=== PATIENT | male | born 1945 | race Caucasian/White ===

== ENCOUNTER 2017-03-15 06:36 | Day surgery (SDC) | payer MEDICARE, BC ==
[2017-03-15] MEDS ORDERED: Lactated Ringers 1,000 ML IV SCH (07:00)
[2017-03-15] MEDS ORDERED: Propofol 200 MG/20 ML SDV ONE (07:29)
[2017-03-15] MEDS ORDERED: Midazolam 1 MG/ML 2 ML SDV ONE (07:30)
[2017-03-15] MEDS ORDERED: fentaNYL 100 MCG/2 ML SDV ONE (07:30)
[2017-03-15] MEDS ORDERED: Glycopyrrolate 0.2 MG/ML 2 ML SDV ONE (07:50)
[2017-03-15 09:24] VITALS: BP 123/77
--- NOTE | 2017-03-16 08:29 | OR ---
DATE OF PROCEDURE: 03/15/2017 PREOPERATIVE DIAGNOSIS: History of colon polyps. POSTOPERATIVE DIAGNOSES: Diverticulosis, history of colon polyps. SURGEON: Yadiel Rodriguez MD. PROCEDURE: Colonoscopy to the cecum. ANESTHESIA: IV anesthesia with monitored anesthesia care. INDICATION: This 71-year-old white male is referred for a colonoscopy because of a history of colon polyps. He thinks his last colonoscopic exam was done five years ago. I counseled him for the procedure including the risks and alternatives, and he gave his informed consent to proceed. DESCRIPTION OF PROCEDURE: The patient was placed in the left lateral decubitus position. IV anesthesia was administered by the Anesthesia Service. Time-out was held. A rectal exam was performed, which was unremarkable. The flexible video Olympus colonoscope wascintroduced through his anus, up his rectum, and out his colon all the way to the cecum. En route, we saw very few scattered left-sided diverticula. There was no bleeding or inflammation associated with them. Once the cecum was reached, the scope was slowly withdrawn, examining the mucosa throughout. No mucosal abnormalities, other than already mentioned, were noted. The scope was retroflexed in the rectum with the distal rectum appearing unremarkable. The scope was straightened and removed. He tolerated the procedure well. Yadiel Rodriguez MD /[id number] MTDD
== END 2017-03-15 09:20 | disposition home or self-care (01) ==
LOC: JP.SDS 06:36
PROVIDERS: ATTEND Surgery
DX: Z12.11 Encounter for screening for malignant neoplasm of colon (principal); Z86.010 Personal history of colon polyps; K57.30 Diverticulosis of large intestine without perforation or abscess without bleeding
CPT/HCPCS: G0105; J2250; J2704; J3010; J7120; J3490

== ENCOUNTER 2019-02-10 13:18 | Emergency (ER) | payer BC, MEDICARE ==
[2019-02-10 14:03] VITALS: BP 113/66; PULSE 102
[2019-02-10] MEDS ORDERED: Acetaminophen 500 MG Tab PO ONE (14:10)
--- NOTE | 2019-02-10 14:10 | EDM.PDOC ---
ED HPI GENERAL MEDICAL PROBLEM - General Chief Complaint: Bite:Animal, Insect Stated Complaint: TICK BITE Time Seen by Provider: 02/10/19 14:04 - History of Present Illness INITIAL COMMENTS - FREE TEXT/NARRATIVE: Tick bite to the left upper leg, about "two weeks ago" He is here with Has fever. Denies any worsening of joints; "always have achy joints". Is eating and drinking No chest pain or pressure, no sob Onset: Gradual Improves with: Reports: None Worsens with: Reports: None Associated Symptoms: Reports: Malaise - Related Data Allergies Allergy/AdvReac Type Severity Reaction Status Date / Time No Known Allergies Allergy Verified 03/15/17 06:58 Home Meds: Home Meds Aspirin [Adult Low Dose Aspirin EC] 81 mg PO DAILY 01/27/16 [History] Multivitamin with Minerals [Multiple Vitamin] 1 tab PO DAILY 01/27/16 [History] Tamsulosin [Tamsulosin 24 Hr] 0.4 mg PO DAILY 01/27/16 [History] Doxycycline [Vibramycin] 100 mg PO BID #28 cap 02/10/19 [Rx] Past Medical History HEENT History: Reports: Allergic Rhinitis, Impaired Vision Other HEENT History: wears glasses Cardiovascular History: Reports: Heart Murmur Gastrointestinal History: Reports: Colon Polyp Genitourinary History: Reports: Prostate Disorder Musculoskeletal History: Reports: Osteoarthritis Psychiatric History: Reports: Anxiety Dermatologic History: Reports: None - Infectious Disease History Infectious Disease History: Reports: Chicken Pox, Measles, Mumps, Shingles - Past Surgical History HEENT Surgical History: Reports: None Cardiovascular Surgical History: Reports: None GI Surgical History: Reports: Colonoscopy, Hernia, Inguinal Male Surgical History: Reports: None Musculoskeletal Surgical History: Reports: None Dermatological Surgical History: Reports: Skin Biopsy Social & Family History - Caffeine Use Caffeine Use: Reports: Coffee ED ROS GENERAL - Review of Systems Review Of Systems: See Below Constitutional: Reports: Weakness, Fatigue HEENT: Reports: No Symptoms Respiratory: Reports: No Symptoms Cardiovascular: Reports: No Symptoms GI/Abdominal: Reports: Other (loose stool) : Reports: No Symptoms Musculoskeletal: Reports: Muscle Stiffness (chronic) Skin: Reports: No Symptoms Psychiatric: Reports: No Symptoms ED EXAM, ANIMAL BITE - Physical Exam Exam: See Below Exam Limited By: No Limitations General Appearance: Alert, WD/WN, No Apparent Distress Throat/Mouth: Normal Inspection, Normal Oropharynx Head: Atraumatic, Normocephalic Neck: Normal Inspection, Supple, Non-Tender, Full Range of Motion Respiratory/Chest: No Respiratory Distress, Lungs Clear, Normal Breath Sounds Cardiovascular: Regular Rate, Rhythm GI/Abdominal: Normal Bowel Sounds, Soft, Non-Tender Extremities: Normal Inspection, Normal Range of Motion Neurological: Alert, Oriented, CN II-XII Intact Psychiatric: Normal Affect, Normal Mood Skin Exam: Normal Color, Warm/Dry, Other (small scab to the left knee area. No redness or bullseye.) Course - Vital Signs Last Recorded V/S: Last Vital Signs Temp 101.3 F H 02/10/19 14:01 Pulse 102 H 02/10/19 14:01 Resp 18 02/10/19 14:01 BP 113/66 02/10/19 14:01 Pulse Ox - Orders/Labs/Meds Orders: Active Orders 24 hr Category Date Time Status BABESIA MICROTI ANTIBODY PANEL Stat Lab 02/10/19 14:23 Received HUMAN GRANULOCYTIC JANNIE-HGE Stat Lab 02/10/19 14:23 Received LYME, TOTAL AB TEST/REFLEX Stat Lab 02/10/19 14:23 Received Meds: Medications Discontinued Medications Generic Name Dose Route Start Last Admin Trade Name Sagarq PRN Reason Stop Dose Admin Acetaminophen 1,000 mg 02/10/19 14:10 02/10/19 14:16 Tylenol Extra Strength PO 02/10/19 14:11 1,000 mg ONETIME ONE Administration - Re-Assessments/Exams Free Text/Narrative Re-Assessment/Exam: 02/10/19 14:42 Reviewed discharge information. Pulse in 88, Temp recheck 100.0 Understands discharge information. Departure - Departure Time of Disposition: 14:43 Disposition: Home, Self-Care 01 Condition: Fair Clinical Impression: Fever, Tick bite - Discharge Information *PRESCRIPTION DRUG MONITORING PROGRAM REVIEWED*: Not Applicable *COPY OF PRESCRIPTION DRUG MONITORING REPORT IN PATIENT GABRIEL: Not Applicable Prescriptions: Doxycycline [Vibramycin] 100 mg PO BID #28 cap Instructions: Tick Bite Information, Adult, [id number], Fever, Adult, Easy-to -Read Referrals: Gene Pacheco MD [Primary Care Provider] - Forms: ED Department Discharge Additional Instructions: Hydrate Tylenol for fever Follow up with your doctor this upcoming week The Tick blood work takes usually 5-7 days as it is a send out Return with concerns Call with questions. - My Orders Last 24 Hours: My Active Orders 02/10/19 14:23 BABESIA MICROTI ANTIBODY PANEL Stat HUMAN GRANULOCYTIC JANNIE-HGE Stat LYME, TOTAL AB TEST/REFLEX Stat - Assessment/Plan Last 24 Hours: My Active Orders 02/10/19 14:23 BABESIA MICROTI ANTIBODY PANEL Stat HUMAN GRANULOCYTIC JANNIE-HGE Stat LYME, TOTAL AB TEST/REFLEX Stat
[2019-02-13 09:09] LABS: LYME IGG/IGM AB <0.91 ISR (0.00-0.90)
[2019-02-14 14:09] LABS: BABESIA MICROTI IGG <1:10 (Neg:<1:10); BABESIA MICROTI IGM <1:10 (Neg:<1:10); HGE IGM TITER Negative (Neg:<1:20)
== END 2019-02-10 14:49 | disposition home or self-care (01) ==
LOC: JP.ED 13:18
DX: S80.262D Insect bite (nonvenomous), left knee, subsequent encounter (principal); R50.9 Fever, unspecified; Z79.82 Long term (current) use of aspirin; Z79.899 Other long term (current) drug therapy
CPT/HCPCS: 86618; 86666; 86753; 99282; A9270